=== PATIENT | male | born 2005 | race Caucasian/White ===

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

== ENCOUNTER 2023-01-01 09:07 | Emergency (ER) | payer BC, OTHER ==
[~2023-01-01] VITALS: Ht 177.8 cm; Wt 65.8 kg
== END 2023-01-01 10:08 | disposition home or self-care (01) ==
LOC: ED 09:07
DX: S29.012A Strain of muscle and tendon of back wall of thorax, initial encounter (principal); X50.0XXA Overexertion from strenuous movement or load, initial encounter; Y99.0 Civilian activity done for income or pay
CPT/HCPCS: 71045; 99284-25; A9270

== ENCOUNTER 2023-05-14 14:58 | Emergency (ER) | payer OTHER, BC ==
[~2023-05-14] VITALS: Ht 177.8 cm; Wt 65.8 kg
--- OUTSIDE RECORDS SUMMARY | ~2023-05-14 | XMS | Continuity of Care Document ---
Demographics + + + | Address | [address] | | | [place] [address] | + + + | Preferred Language | Unknown | + + + | Marital Status | Never | + + + | Faith Affiliation | Unknown | + + + | Race | White | + + + | Ethnic Group | Not or | + + + Author + + + | Author | [facility] | + + + | Organization | [facility] | + + + | Address | [address] | | | [place] [address] | + + + | Phone | | + + + Care Team Providers + + + + | Care Equipment Tech Name | Role | Phone | + + + + Unavailable | Unavailable | + + + + Unavailable | Unavailable | + + + + Allergies No information. Encounters No information. Functional Status No information. Immunizations No information. Medications No information. Problems + + + + | date | description | facility | + + + + | 2018-07-14 00:00 | Abscess | [facility] | + + + + | 2023-01-01 00:00 | Upper back strain | [facility] | + + + + | 2023-01-01 09:08 | SHORTNESS OF BREATH | [facility] | + + + + | 2023-01-01 09:08 | STRAIN OF MUSCLE AND | [facility] | | | TENDON OF BACK WALL OF | | | | THORAX | | + + + + | 2023-01-01 09:08 | OVEREXERTION FROM | [facility] | | | STRENUOUS MOVEMENT OR LOAD, | | | | INIT | | + + + + | 2023-01-01 09:08 | CIVILIAN ACTIVITY DONE FOR | [facility] | | | INCOME OR PAY | | + + + + Procedures No information. Results/Labs No information. Social History No information. Vital Signs + + +---------+---------+ | date | measurement | value | units | + + +---------+---------+ | 2023-01-01 00:00 | BMI | 20.8 | kg/m2 | + + +---------+---------+ | 2023-01-01 00:00 | BMI | 50 | % | + + +---------+---------+ | 2023-01-01 00:00 | BP_diastolic | 79 | mmHg | + + +---------+---------+ | 2023-01-01 00:00 | BP_systolic | 122 | mmHg | + + +---------+---------+ | 2023-01-01 00:00 | heart_rate | 54 | /min | + + +---------+---------+ | 2023-01-01 00:00 | height_metric | 177.8 | cm | + + +---------+---------+ | 2023-01-01 00:00 | height_standard | 70 | in | + + +---------+---------+ | 2023-01-01 00:00 | o2_saturation | 99 | % | + + +---------+---------+ | 2023-01-01 00:00 | respiration_rate | 15 | /min | + + +---------+---------+ | 2023-01-01 00:00 | temperature_metric | 36.78 | C | | | | | | + + +---------+---------+ | 2023-01-01 00:00 | | 98.2 | F | | | temperature_standar | | | | | d | | | + + +---------+---------+ | 2023-01-01 00:00 | weight_metric | 65.77 | kg | + + +---------+---------+ | 2023-01-01 00:00 | weight_standard | 145 | lb | + + +---------+---------+"
--- OUTSIDE RECORDS SUMMARY | ~2023-05-14 | XMS | Continuity of Care Document ---
Demographics + + + | Address | [address] | | | [place] [address] | + + + | Preferred Language | Unknown | + + + | Marital Status | Never | + + + | Oriental Orthodox Affiliation | Unknown | + + + | Race | White | + + + | Ethnic Group | Not or | + + + Author + + + | Author | [facility] | + + + | Organization | [facility] | + + + | Address | [address] | | | [place] [address] | + + + | Phone | | + + + Care Team Providers + + + + | Care Codifier Name | Role | Phone | + [...] + | 2018-07-14 00:00 | Abscess | [facility] | + + + + | 2023-01-01 00:00 | Upper back strain | [facility] | + + + + | 2023-01-01 [...]
[2023-05-14 17:16] VITALS: BP 120/80
== END 2023-05-14 17:16 | disposition home or self-care (01) ==
LOC: ED 14:58
DX: S50.11XA Contusion of right forearm, initial encounter (principal); W19.XXXA Unspecified fall, initial encounter; Y99.0 Civilian activity done for income or pay
CPT/HCPCS: 73090; 99283-25